=== PATIENT | female | born 1990 | race African-American/Black ===

== ENCOUNTER 2016-10-25 09:48 | Emergency (ER) | payer OTHER ==
[2016-10-25 09:57] VITALS: BP 135/90; PULSE 58; TEMP 97.4; BMI 28.5
[2016-10-25 10:57] LABS: URINE APPEARANCE CLEAR; URINE BILIRUBIN NEGATIVE (NEGATIVE); URINE COLOR AMBER; URINE GLUCOSE (UA) NEGATIVE (NEGATIVE); URINE KETONE NEGATIVE (NEGATIVE); URINE NITRITE POSITIVE (NEGATIVE); URINE PROTEIN NEGATIVE (NEGATIVE); URINE UROBILINOGEN 4.0 E.U/dl E.U./dl (0.2-1.0)
[2016-10-25 11:02] LABS: URINE BLOOD 2+ (NEGATIVE); URINE LEUK ESTERASE 2+ (NEGATIVE)
--- NOTE | 2016-10-25 11:17 | PDOC ---
History of Present Illness - General Chief Complaint: Urinary Problem Stated Complaint: VAGINAL PAIN Time Seen by Provider: 10/25/16 11:12 History Source: Patient Exam Limitations: No Limitations - History of Present Illness Initial Comments: 10/25/16 11:12 CC dysuria, and frequency Timing/Duration: reports: constant Quality: reports: moderate Abdominal Pain Onset Location: reports: suprapubic Pain Radiation: denies: no radiation Past History - Past Medical History Allergies/Adverse Reactions: Allergies Allergy/AdvReac Type Severity Reaction Status Date / Time No Known Allergies Allergy Verified 10/25/16 09:53 Home Medications: Ambulatory Orders NK [No Known Home Medication] 10/25/16 Asthma: Yes - Immunization History Immunization Up to Date: Yes - Psycho/Social/Smoking Cessation Hx Anxiety: No Suicidal Ideation: No Smoking Status: No Smoking History: Never smoked Have you smoked in the past 12 months: No Number of Cigarettes Smoked Daily: 0 Information on smoking cessation initiated: No Hx Alcohol Use: No Drug/Substance Use Hx: No Substance Use Type: None Review of Systems - Review of Systems Constitutional: No: Chills, Fever, Malaise HEENTM: No: Symptoms Reported, Nose Congestion Respiratory: No: Symptoms reported, Cough Cardiac (ROS): No: Symptoms Reported, Chest Pain ABD/GI: No: Symptoms Reported : Yes: Burning, Dysuria, Frequency, Hematuria. No: Flank Pain, Incontinence, Pain Musculoskeletal: No: Symptoms Reported Integumentary: No: Symptoms Reported *Physical Exam - Vital Signs Last Vital Signs Temp Pulse Resp BP Pulse Ox 97.4 F L 58 L 18 135/90 100 10/25/16 09:54 10/25/16 09:54 10/25/16 09:54 10/25/16 09:54 10/25/16 09:54 - Physical Exam General Appearance: Yes: Appropriately Dressed. No: Apparent Distress HEENT: negative: TMs Normal, Pharynx Normal Neck: positive: Supple. negative: Tender, Rigid, Lymphadenopathy (R), Lymphadenopathy (L) Respiratory/Chest: negative: Chest Tender, Lungs Clear, Respiratory Distress Cardiovascular: positive: Regular Rhythm, Regular Rate. negative: Murmur Gastrointestinal/Abdominal: negative: Normal Bowel Sounds, Tender, Organomegaly Extremity: negative: Normal Capillary Refill Integumentary: negative: Normal Color Neurologic: negative: rim turning finisher II-XII NML intact ED Treatment Course - ADDITIONAL ORDERS Additional order review: Laboratory Results 10/25/16 10:30 Urine Color [place] Urine Appearance Clear Urine pH 7.0 Ur Specific [place] 1.011 Urine Protein Negative Urine Glucose (UA) Negative Urine Ketones Negative Urine Blood 2+ H Urine Nitrite Positive Urine Bilirubin Negative Urine Urobilinogen 4.0 e.u/dl H Ur Leukocyte Esterase 2+ H Urine HCG, Qual Negative Medical Decision Making - Medical Decision Making 10/25/16 11:14 here for dysuria; no fever, chills *DC/Admit/Observation/Transfer Diagnosis at time of Disposition: Cystitis Urinary tract infection Qualifiers: Urinary tract infection type: acute cystitis Hematuria presence: with hematuria Qualified Code(s): N30.01 - Acute cystitis with hematuria - Discharge Dispostion Disposition: HOME Condition at time of disposition: Stable - Patient Instructions Additional Instructions: lots of fluids; return for increased symptoms - Post Discharge Activity Work/School Note: Back to Work
[2016-10-25 11:29] LABS: URINE BACTERIA RARE /hpf (NONE SEEN); URINE RBC 118 /hpf (0-3); URINE WBC 461 /hpf (3-5); YEAST FEW
== END 2016-10-25 11:21 | disposition home or self-care (01) ==
LOC: JERFT 09:48
DX: N30.01 Acute cystitis with hematuria (principal); J45.909 Unspecified asthma, uncomplicated
CPT/HCPCS: 81003; 81015; 84703; 99281-25

== ENCOUNTER 2018-08-06 08:24 | Emergency (ER) | payer SELFPAY ==
[2018-08-06 08:28] VITALS: BP 126/84; PULSE 103; TEMP 98.9; BMI 28.3
[2018-08-06] MEDS ORDERED: PENICILLIN G BENZATHINE 1,200,000 UNIT/2 ML PFS IM ONE (09:08)
--- NOTE | 2018-08-06 09:08 | PDOC ---
History of Present Illness - General Chief Complaint: Sore Throat Stated Complaint: SORE THROAT Time Seen by Provider: 08/06/18 08:36 History Source: Patient Exam Limitations: No Limitations - History of Present Illness Initial Comments: 08/06/18 09:11 Came in with complaints of sore throat pain with fevers yesterday. At [facility] gargle used ibuprofen but no resolved. Timing/Duration: unsure, 24 hours Associated Symptoms: reports: denies symptoms, fever/chills, headaches, loss of appetite, malaise Past History - Past Medical History Allergies/Adverse Reactions: Allergies Allergy/AdvReac Type Severity Reaction Status Date / Time No Known Allergies Allergy Verified 08/06/18 08:28 Home Medications: Ambulatory Orders NK [No Known Home Medication] 08/06/18 Asthma: Yes COPD: No - Immunization History Immunization Up to Date: Yes - Suicide/Smoking/Psychosocial Hx Smoking Status: No Smoking History: Current every day smoker Have you smoked in the past 12 months: No Number of Cigarettes Smoked Daily: 4 Information on smoking cessation initiated: No Hx Alcohol Use: No Drug/Substance Use Hx: No Substance Use Type: None Review of Systems - Review of Systems Able to Perform ROS?: Yes Is the patient limited [place] proficient: Yes Constitutional: Yes: Symptoms Reported, See HPI, Chills, Fever, Loss of Appetite , Malaise HEENTM: Yes: Symptoms Reported, See HPI, Nose Congestion, Throat Pain Respiratory: Yes: See HPI (0) *Physical Exam - Vital Signs Last Vital Signs Temp Pulse Resp BP Pulse Ox 98.9 F 103 H 18 126/84 97 08/06/18 08:25 08/06/18 08:25 08/06/18 08:25 08/06/18 08:25 08/06/18 08:25 - Physical Exam General Appearance: Yes: Nourished, Appropriately Dressed, Apparent Distress, Mild Distress HEENT: positive: NICOLAS, TMs Normal, Pharyngeal Erythema (with fetid smelling and robert exudate bilaterally), Tonsillar Exudate, Tonsillar Erythema, Nasal Congestion. negative: Pharynx Normal Neck: positive: Tender, Supple, Lymphadenopathy (R), Lymphadenopathy (L) Respiratory/Chest: positive: Lungs Clear, Normal Breath Sounds Cardiovascular: positive: Regular Rate Gastrointestinal/Abdominal: positive: Soft. negative: Normal Bowel Sounds, Tender Extremity: positive: Normal Capillary Refill, Normal Inspection Integumentary: positive: Normal Color, Dry, Warm, Pale Neurologic: positive: photo lab specialist II-XII NML intact, Fully Oriented, Alert, Normal Mood/ Affect, Normal Response, Motor Strength 02/11 Medical Decision Making - Medical Decision Making 08/06/18 09:14 Pharyngitis, probable streptococcal, treated with Bicillin 1.2 million units IM with no reaction after 30 minutes *DC/Admit/Observation/Transfer Diagnosis at time of Disposition: Pharyngitis Qualifiers: Pharyngitis/tonsillitis etiology: unspecified etiology Qualified Code(s): J02.9 - Acute pharyngitis, unspecified - Discharge Dispostion Disposition: HOME Condition at time of disposition: Stable Decision to Admit order: No - Referrals Referrals: George Livingston MD [Primary Care Provider] - - Patient Instructions Printed Discharge Instructions: DI for Pharyngitis/Tonsillopharyngitis -- Adult Additional Instructions: Rest, drink lots of fluids: Teas, water, soups Eat cold things: Ice cream, ice pops, ice chips Saltwater gargles Steamy showers/seem to face break up mucus Avoid contact with others until fevers and pain resolved Lots of handwashing and good hygiene, this is contagious You have been treated with Bicillin LA 1.2 million units injection which is a one-time treatment for strep pharyngitis. You will not need to take any further antibiotics. Tylenol or Motrin for fever and pain Followup with private physician in one to 2 days as needed if not improving Return to emergency department for worsened symptoms, fevers, dehydration - Post Discharge Activity Forms/Work/School Notes: Back to Work
[2018-08-06] MEDS ORDERED: PENICILLIN G BENZATHINE 2,400,000 UNIT/4 ML PFS ONE (09:15)
== END 2018-08-06 09:42 | disposition home or self-care (01) ==
LOC: JERFT 08:24
DX: J02.9 Acute pharyngitis, unspecified (principal)
CPT/HCPCS: 99281-25

== ENCOUNTER 2019-10-17 14:01 | Emergency (ER) | payer OTHER ==
[2019-10-17 14:26] VITALS: BP 119/75; PULSE 78; TEMP 98.2; BMI 27.4
--- NOTE | 2019-10-17 14:26 | PDOC ---
Rapid Medical Evaluation Time Seen by Provider: 10/17/19 14:21 Medical Evaluation: Allergies Allergy/AdvReac Type Severity Reaction Status Date / Time No Known Allergies Allergy Verified 10/17/19 14:21 10/17/19 14:21 I have performed a brief in-person evaluation of this patient. The patient presents with a chief complaint of:URI w/ SOB. H/o asthma, using pump w/ improvement. States her PMD told her to come into ED for her SOB though pt admits she is asx at this time. Pertinent physical exam findings:stable, clear lungs I have ordered the following:nothing The patient will proceed to the ED for further evaluation. Discharge Disposition - Diagnosis Asthma flare Qualifiers: Asthma severity: mild Asthma persistence: unspecified Qualified Code(s): J45.901 - Unspecified asthma with (acute) exacerbation - Referrals - Patient Instructions - Post Discharge Activity
--- NOTE | 2019-10-17 15:52 | PDOC ---
History of Present Illness - General Chief Complaint: Asthma Stated Complaint: SENT BY DOCTOR Time Seen by Provider: 10/17/19 14:21 - History of Present Illness Initial Comments: 10/17/19 15:51 29-year-old female with a past medical history of asthma sent to the emergency room by her primary care doctor for follow-up from her prior asthma exacerbation. Patient is feeling well with no issues Past History - Past Medical History Allergies/Adverse Reactions: Allergies Allergy/AdvReac Type Severity Reaction Status Date / Time No Known Allergies Allergy Verified 10/17/19 14:21 Home Medications: Ambulatory Orders Albuterol Sulfate Inhaler - [Ventolin Hfa Inhaler -] 2 inh PO Q6H 10/17/19 Asthma: Yes COPD: No - Immunization History Immunization Up to Date: Yes - Psycho Social/Smoking Cessation Hx Smoking Status: No Smoking History: Current every day smoker Have you smoked in the past 12 months: No Number of Cigarettes Smoked Daily: 5 Information on smoking cessation initiated: No Hx Alcohol Use: No Drug/Substance Use Hx: No Substance Use Type: None Review of Systems - Review of Systems Constitutional: No: Fever *Physical Exam - Vital Signs Last Vital Signs Temp Pulse Resp BP Pulse Ox 98.2 F 78 17 119/75 100 10/17/19 14:21 10/17/19 14:21 10/17/19 14:21 10/17/19 14:21 10/17/19 14:21 - Physical Exam 10/17/19 15:51 GENERAL: The patient is awake, alert, and fully oriented, in no acute distress. HEAD: Normal with no signs of trauma. EYES: sclera anicteric, conjunctiva clear. ENT: Ears normal tympanic membranes normal oropharynx clear uvula midline NECK: Normal range of motion LUNGS: Breath sounds equal, clear to auscultation bilaterally. No wheezes, and no crackles. HEART: S1 and S2 without murmur, rub or gallop. ABDOMEN: Soft, nontender, normoactive bowel sounds. No guarding, no rebound. No masses. EXTREMITIES: Normal range of motion, no edema. No clubbing or cyanosis. No cords, erythema, or tenderness. NEUROLOGICAL: Cranial nerves II through XII grossly intact. Normal speech, normal gait. PSYCH: Normal mood, normal affect. SKIN: Warm, Dry, normal turgor, no rashes or lesions noted. Medical Decision Making - Medical Decision Making 10/17/19 15:51 Benign exam chest clear patient can follow-up with primary care physician Discharge - Discharge Information Problems reviewed: Yes Clinical Impression/Diagnosis: Asthma flare Qualifiers: Asthma severity: mild Asthma persistence: unspecified Qualified Code(s): J45.901 - Unspecified asthma with (acute) exacerbation Condition: Stable Disposition: HOME - Admission No - Follow up/Referral - Patient Discharge Instructions Additional Instructions: Return to the emergency room for any further issues otherwise follow-up with your primary care physician in 2 to 3 days without fail for further evaluation and treatment options. - Post Discharge Activity
== END 2019-10-17 17:26 | disposition home or self-care (01) ==
LOC: JERFT 14:01 → SUPCPDRO 14:01 → JERFT 17:26
DX: J45.901 Unspecified asthma with (acute) exacerbation (principal)
CPT/HCPCS: 99281-25

== ENCOUNTER 2023-10-09 11:07 | Emergency (ER) | payer SELFPAY ==
[2023-10-09 11:18] VITALS: BP 147/99; PULSE 100; RESP 18; TEMP 98.5; BMI 26.6
[2023-10-09] MEDS ORDERED: AMOXICILLIN 500 MG CAPSULE (FP) PO ONE (12:21)
[2023-10-09] MEDS ORDERED: AMOXICILLIN 250 MG CAPSULE ONE (12:51)
== END 2023-10-09 12:57 | disposition home or self-care (01) ==
LOC: JERFT 11:07
DX: J02.0 Streptococcal pharyngitis (principal); R05.9 Cough, unspecified; R09.81 Nasal congestion
CPT/HCPCS: 87651; 99283-25

== ENCOUNTER 2024-09-29 10:24 | Emergency (ER) | payer OTHER ==
[2024-09-29 10:32] VITALS: BP 139/92; BMI 26.6
[2024-09-29 10:37] VITALS: PULSE 90; RESP 20; TEMP 97.9
[2024-09-29] MEDS ORDERED: predniSONE 20 MG TABLET (UD) ONE (11:32)
[2024-09-29] MEDS ORDERED: KETOROLAC TROMETHAMINE 30 MG/1 ML VIAL ONE (11:32)
[2024-09-29] MEDS ORDERED: METHOCARBAMOL 500 MG TABLET ONE (11:32)
[2024-09-29] MEDS: predniSONE 20 MG TABLET (UD) PO ONE (11:41)
[2024-09-29] MEDS: KETOROLAC TROMETHAMINE 30 MG/1 ML VIAL IM ONE (11:41)
[2024-09-29] MEDS: METHOCARBAMOL 500 MG TABLET PO ONE (11:41)
== END 2024-09-29 15:01 | disposition home or self-care (01) ==
LOC: JER 10:24 → JERFT 10:24 → JER 15:01
PROC: 3E0133Z Introduction of Anti-inflammatory into Subcutaneous Tissue, Percutaneous Approach (ICD-10-PCS; principal; 2024-09-29)
DX: M54.50 Low back pain, unspecified (principal); G89.29 Other chronic pain
CPT/HCPCS: 72131-TC; 84703; 99284-25